=== PATIENT | female | born 1960 | race Caucasian/White ===

== ENCOUNTER → 2018-06-12 | Outpatient (CLI) | payer OTHER ==
--- NOTE | 2018-06-23 12:15 | RADIOLOGY IMAGING REPORT ---
FACILITY: [facility] - [place] PATIENT NAME: ALYO ELLISON : [id number] MR: [id number] V: [id number] EXAM DATE: [id number] ORDERING PHYSICIAN: LOLA LOPEZ TECHNOLOGIST: Ca Parnell PROCEDURE:BILATERAL DIGITAL SCREENING MAMMOGRAM WITH CAD ASSISTED INTERPRETATION & 3D TOMOSYNTHESIS COMPARISON:Previous outside mammograms 05/22/2010 have just now been received for comparison. INDICATIONS:SCREENING FINDINGS: The breasts are heterogeneously dense which may obscure small masses. The parenchymal pattern has remained stable allowing for difference in mammographic technique & patient positioning. DIAGNOSTIC CATEGORY 1--NEGATIVE. RECOMMENDATIONS: ROUTINE MAMMOGRAM AND CLINICAL EVALUATION. IMPRESSION: BIRADS 1: Negative. No significant abnormality is seen. Dictated by: Delaney Choudhary M.D. on 06/23/2018 at 9:13 Transcribed by: ARMANDO on 06/23/2018 at 10:44 Approved by: Delaney Choudhary M.D. on 06/23/2018 at 12:14 [facility]
== END ==
LOC: MAMO 03:23
PROVIDERS: ATTEND Obstetrics & Gynecology
DX: Z12.31 Encounter for screening mammogram for malignant neoplasm of breast (principal); Z80.3 Family history of malignant neoplasm of breast
CPT/HCPCS: 77063; 77067